=== PATIENT | male | born 1980 ===

== ENCOUNTER 2017-03-23 13:30 | Observation (INO) | payer BC ==
[2017-03-23 13:32] VITALS: BMI 30.7
--- NOTE | 2017-03-23 13:57 | ED PDOC ---
HPI: General Adult Time Seen by Provider: 03/23/17 13:41 Chief Complaint (Nursing): Abdominal Pain Chief Complaint (Provider): abdominal pain History Per: Patient History/Exam Limitations: no limitations Additional Complaint(s): 36yo male comes to the ED complaining of diffuse abdominal pain since yesterday , intermittently. Reports very little diarrhea. No constipation, fever or vomit. No alcohol use. Past Medical History Reviewed: Historical Data, Nursing Documentation, Vital Signs Vital Signs: Last Vital Signs Temp 98.1 F 03/24/17 07:32 Pulse 86 03/24/17 07:32 Resp 16 03/24/17 07:32 BP 113/70 03/24/17 07:32 Pulse Ox 98 03/24/17 09:18 - Medical History PMH: No Chronic Diseases - Surgical History Surgical History: No Surg Hx - Family History Family History: States: Unknown Family Hx - Living Arrangements Living Arrangements: With Family - Social History Alcohol: None Drugs: Denies - Allergies Allergies/Adverse Reactions: Allergies Allergy/AdvReac Type Severity Reaction Status Date / Time No Known Allergies Allergy Verified 03/23/17 13:49 Review of Systems ROS Statement: Except As Marked, All Systems Reviewed And Found Negative Constitutional: Negative for: Fever Gastrointestinal: Positive for: Abdominal Pain. Negative for: Vomiting, Constipation Physical Exam - Reviewed Nursing Documentation Reviewed: Yes Vital Signs Reviewed: Yes - Physical Exam Appears: Positive for: Well, Non-toxic, No Acute Distress Head Exam: Positive for: ATRAUMATIC, NORMAL INSPECTION, NORMOCEPHALIC Skin: Positive for: Warm, Dry Eye Exam: Positive for: EOMI, PERRL Cardiovascular/Chest: Positive for: Regular Rate, Rhythm Respiratory: Positive for: Normal Breath Sounds. Negative for: Rales, Rhonchi, Wheezing Gastrointestinal/Abdominal: Positive for: Soft, Tenderness (diffuse). Negative for: Guarding, Rebound Extremity: Positive for: Normal ROM - Laboratory Results Result Diagrams: 03/24/17 07:30 03/24/17 07:30 - ECG O2 Sat by Pulse Oximetry: 98 (RA) Pulse Ox Interpretation: Normal Medical Decision Making Medical Decision Makin CT abd/pel w/, Labs, Morphine, Pepcid, IV fluids ordered. ED OBSERVATION Date of observation admission: 03/23/17 Time of observation admission: 14:13 - Observation admission statement Patient is being placed in observation because:: need for additional diagnostic imaging to rule out acute or life threatening condition - Goals of Observation Goals of observation are:: resolution of symptoms - Progress Note Progress Note: 03/23/17 16:00 vitals are stable 03/23/17 1700 signed over to Ralph Mitchell DO pending CT, urine, dispo 03/24/17 09:17 Disposition - Clinical Impression Clinical Impression: Abdominal pain - Patient ED Disposition Is Patient to be Admitted: Transfer of Care - Disposition Disposition: Transfer of Care Disposition Time: 17:00 Condition: STABLE Patient Signed Over To: Damon Mitchell III Additional Comments - Additional Comments Additional Comments: Scribe Attestation: Documented by Trino Pham acting as a scribe for Libby Beal MD. Provider Scribe Attestation: All medical record entries made by the Scribe were at my direction and personally dictated by me. I have reviewed the chart and agree that the record accurately reflects my personal performance of the history, physical exam, medical decision making, and the department course for this patient. I have also personally directed, reviewed, and agree with the discharge instructions and disposition.
[2017-03-23] MEDS ORDERED: Iohexol 240 (50 ml) PO ONE (13:58)
[2017-03-23] MEDS ORDERED: Sodium Chloride 0.9% 1,000 ML IV STA (13:59)
[2017-03-23] MEDS ORDERED: Iohexol 240 (50 ml) ONE (14:54)
[2017-03-23 15:13] LABS: BASO % 0.3 % (0.0-2.0); EOS # 0.1 K/uL (0.0-0.7); EOS % 0.7 % (0.0-4.0); HEMATOCRIT 43.9 % (35.0-51.0); LYMPH # 1.3 K/uL (1.0-4.3); LYMPH % 11.4 % (20.0-40.0); MEAN CELL VOLUME 88.6 fl (80.0-94.0); MEAN CORPUSCULAR HEMOGLOBIN 29.1 pg (27.0-31.0); MEAN CORPUSCULAR HGB CONC 32.8 g/dL (33.0-37.0); MEAN PLATELET VOLUME 9.9 fl (7.2-11.7); MONO # 0.5 K/uL (0.0-0.8); MONO % 4.5 % (0.0-10.0); NEUT # 9.8 K/uL (1.8-7.0); NEUT % 83.1 % (50.0-75.0); RED CELL DISTRIBUTION WIDTH 13.1 % (11.5-14.5); WHITE BLOOD COUNT 11.8 K/uL (4.8-10.8)
[2017-03-23 15:34] LABS: ALB/GLOB RATIO 1.4 (1.0-2.1); ALKALINE PHOSPHATASE 90 U/L (38-126); ALT/SGPT 41 U/L (21-72); AST/SGOT 26 U/L (17-59); BILIRUBIN,TOTAL 0.7 mg/dl (0.2-1.3); BLOOD UREA NITROGEN 12 mg/dl (9-20); CALCIUM 9.3 mg/dL (8.4-10.2); CARBON DIOXIDE 25 mmol/L (22-30); CHLORIDE 101 mmol/L (98-107); GFR AFRICAN-AMERICAN > 60; GLUCOSE,RANDOM 90 mg/dL (75-110); LIPASE 37 U/L (23-300); POTASSIUM 3.8 MMOL/L (3.6-5.0); SODIUM 138 mmol/l (132-148); TOTAL PROTEIN 8.1 G/DL (6.3-8.2)
--- NOTE | 2017-03-23 17:16 | ED PDOC ---
- Laboratory Results Result Diagrams: 03/23/17 14:55 03/23/17 14:55 - ECG O2 Sat by Pulse Oximetry: 98 (RA) Pulse Ox Interpretation: Normal Medical Decision Making Medical Decision Makin:00 Patient transferred over to provider from Dr. Beal. Pending CT Abd Pelvis. Scribe Attestation: Documented by Trino Grande, acting as a scribe for Damon Mitchell III, MD. Provider Scribe Attestation: All medical record entries made by the Scribe were at my direction and personally dictated by me. I have reviewed the chart and agree that the record accurately reflects my personal performance of the history, physical exam, medical decision making, and the department course for this patient. I have also personally directed, reviewed, and agree with the discharge instructions and disposition.
[2017-03-23] MEDS ORDERED: Iohexol 300 100 ML IJ ONE (17:36)
[2017-03-23] MEDS ORDERED: Sodium Chloride 0.9% 50 ML IV ONE (17:36)
--- NOTE | 2017-03-23 18:51 | CT ---
PROCEDURE: CT Abdomen and Pelvis with contrast HISTORY: abdominal pain COMPARISON: None. TECHNIQUE: Contrast dose: 95 cc Omnipaque 300 Radiation dose: Total exam DLP = 1048.34 mGy-cm. This CT exam was performed using one or more of the following dose reduction techniques: Automated exposure control, adjustment of the mA and/or kV according to patient size, and/or use of iterative reconstruction technique. FINDINGS: LOWER THORAX: Lower lobe infiltrates/dependent atelectasis. LIVER: Unremarkable. No gross lesion or ductal dilatation. GALLBLADDER AND BILE DUCTS: Unremarkable. PANCREAS: Unremarkable. No gross lesion or ductal dilatation. SPLEEN: Unremarkable. ADRENALS: Unremarkable. No mass. KIDNEYS AND URETERS: Unremarkable. No hydronephrosis. No solid mass. VASCULATURE: Unremarkable. No aortic aneurysm. BOWEL: Unremarkable. No obstruction. No gross mural thickening. APPENDIX: Acute appendicitis. Edematous thickened wall of the appendix and periappendiceal inflammatory change. No evidence of loculated air, free air, drainable collection. PERITONEUM: Unremarkable. No free fluid. No free air. LYMPH NODES: Unremarkable. No enlarged lymph nodes. BLADDER: Unremarkable. REPRODUCTIVE: Unremarkable. BONES: No acute fracture. OTHER FINDINGS: None. IMPRESSION: Acute/uncomplicated appendicitis. Lower lobe infiltrates/atelectasis. Communication of results: Study completed at 18:22. I discussed the findings directly with Dr. Mitchell at 18:48.
[2017-03-23] MEDS ORDERED: Piperacillin/Tazobact 4.5 GM in Sodium Chloride 0.9% 100 ML IVPB STA (18:58)
--- NOTE | 2017-03-23 20:40 | CP.PCM.CON ---
History of Present Illness - History of Present Illness History of Present Illness: 36 y.o. male comes to the hospital c/o lower abdominal pain since yesterday. Denies any nausea or vomiting, reports some chills but did not measure his temperature. No change in bowel habits. States that never had this type of pain before. No urinary symptoms, no other complains at present time. Review of Systems - Constitutional Constitutional: As Per HPI - EENT Eyes: Other (unremarkable) Ears: Other (unremarkable) Nose/Mouth/Throat: Other (unremarkable) - Cardiovascular Cardiovascular: Other (unremarkable) - Gastrointestinal Gastrointestinal: As Per HPI - Genitourinary Genitourinary: As Per HPI - Reproductive: Male Reproductive:Male: Other (unremarkable) - Musculoskeletal Musculoskeletal: Other (unremarkable) - Integumentary Integumentary: Other (unremarkable) - Neurological Neurological: Other (unremarkable) - Psychiatric Psychiatric: Other (unremarkable) - Endocrine Endocrine: Other (unremarkable) - Hematologic/Lymphatic Hematologic: Other (unremarkable) Past Patient History - Past Medical History & Family History Past Medical History?: Yes - Past Social History Smoking Status: Unknown If Ever Smoked - CARDIAC Hx Cardiac Disorders: Yes (high cholesterol) - PULMONARY Hx Respiratory Disorders: No - NEUROLOGICAL Hx Neurological Disorder: No - HEENT Hx HEENT Problems: No - RENAL Hx Chronic Kidney Disease: No - ENDOCRINE/METABOLIC Hx Endocrine Disorders: No - HEMATOLOGICAL/ONCOLOGICAL Hx Blood Disorders: No - INTEGUMENTARY Hx Dermatological Problems: No - MUSCULOSKELETAL/RHEUMATOLOGICAL Hx Musculoskeletal Disorders: No - GASTROINTESTINAL Hx Gastrointestinal Disorders: No - GENITOURINARY/GYNECOLOGICAL Hx Genitourinary Disorders: No - PSYCHIATRIC Hx Psychophysiologic Disorder: No - SURGICAL HISTORY Hx Surgeries: No - ANESTHESIA Hx Anesthesia: No Meds Allergies/Adverse Reactions: Allergies Allergy/AdvReac Type Severity Reaction Status Date / Time No Known Allergies Allergy Verified 03/23/17 13:49 Physical Exam - Constitutional Appears: Well, Non-toxic, No Acute Distress - Head Exam Head Exam: ATRAUMATIC, NORMAL INSPECTION, NORMOCEPHALIC - Eye Exam Eye Exam: EOMI, Normal appearance, PERRL Pupil Exam: NORMAL ACCOMODATION, PERRL - ENT Exam ENT Exam: Mucous Membranes Moist, Normal Exam - Neck Exam Neck exam: Positive for: Full Rom, Normal Inspection - Respiratory Exam Respiratory Exam: Clear to Auscultation Bilateral, NORMAL BREATHING PATTERN - Cardiovascular Exam Cardiovascular Exam: REGULAR RHYTHM, +S1, +S2 - GI/Abdominal Exam GI & Abdominal Exam: Normal Bowel Sounds, Soft Additional comments: RLQ tenderness, ND, no rebound, no guarding - Rectal Exam Rectal Exam: Deferred - Extremities Exam Extremities exam: Positive for: full ROM, normal inspection - Back Exam Back exam: NORMAL INSPECTION - Neurological Exam Neurological exam: Alert, CN II-XII Intact, Normal Gait, Oriented x3 - Psychiatric Exam Psychiatric exam: Normal Affect, Normal Mood - Skin Skin Exam: Dry, Intact, Normal Color, Warm Results - Vital Signs Recent Vital Signs: Last Vital Signs Temp 98.1 F 03/23/17 20:06 Pulse 94 H 03/23/17 20:06 Resp 16 03/23/17 20:06 BP 122/81 03/23/17 20:06 Pulse Ox 99 03/23/17 19:17 - Labs Result Diagrams: 03/23/17 14:55 03/23/17 14:55 Labs: Laboratory Results - last 24 hr 03/23/17 03/23/17 14:55 14:55 WBC 11.8 H RBC 4.96 Hgb 14.4 Hct 43.9 MCV 88.6 MCH 29.1 MCHC 32.8 L RDW 13.1 Plt Count 154 MPV 9.9 Neut % (Auto) 83.1 H Lymph % (Auto) 11.4 L [place] % (Auto) 4.5 Eos % (Auto) 0.7 Baso % (Auto) 0.3 Neut # 9.8 H Lymph # 1.3 [place] # 0.5 Eos # 0.1 Baso # 0.0 Sodium 138 Potassium 3.8 Chloride 101 Carbon Dioxide 25 Anion Gap 16 BUN 12 Creatinine 0.6 L Est GFR ( Amer) > 60 Est GFR (Non-Af Amer) > 60 Random Glucose 90 Calcium 9.3 Total Bilirubin 0.7 AST 26 ALT 41 Alkaline Phosphatase 90 Total Protein 8.1 Albumin 4.7 Globulin 3.4 Albumin/Globulin Ratio 1.4 Lipase 37 - Imaging and Cardiology CT scan - abdomen Status: Image reviewed by me, Report reviewed by me Assessment & Plan - Assessment and Plan (Free Text) Assessment: 36 y.o. male with acute appendicitis Plan: - Keep NPO - IV fluids - Pain control - Zosyn - To OR for Appendectomy
[2017-03-23] MEDS ORDERED: Lactated Ringer's 1,000 ML IV ONE (20:53)
[2017-03-23] MEDS ORDERED: Bupivacaine 0.5% 50 ML IJ ONE ×3 (20:55→21:20)
[2017-03-23] MEDS ORDERED: HYDROmorphone 0.5 mg/0.5 ml ISec ONE (21:24)
[2017-03-23] MEDS ORDERED: HYDROmorphone 0.5 mg/0.5 ml ISec IVP PRN (21:31)
--- NOTE | 2017-03-23 21:37 | PCM.SURG1 ---
Surgeon's Initial Post Op Note - Surgeon's Notes Surgeon: Dr. Cortez Social Sciences Chair: Dr. Guerrero Type of Anesthesia: General Endo Anesthesia Administered By: Say Pre-Operative Diagnosis: Acute Appendicitis Operative Findings: same Post-Operative Diagnosis: same Operation Performed: Laparoscopic Appendectomy Specimen/Specimens Removed: appendix Estimated Blood Loss: EBL {In ML}: 10 Blood Products Given: N/A Drains Used: No Drains Post-Op Condition: Good Date of Surgery/Procedure: 03/23/17 Time of Surgery/Procedure: 21:37
[2017-03-23] MEDS ORDERED: Oxycodone/Acetaminophen 5/325 mg Tab PO PRN (21:38)
--- NOTE | 2017-03-23 21:49 | OP ---
PROCEDURE DATE: 03/23/2017 PREOPERATIVE DIAGNOSIS: Acute appendicitis. POSTOPERATIVE DIAGNOSIS: Acute appendicitis. PROCEDURE: Laparoscopic appendectomy. SURGEON: Christiano Cortez MD MACHINE BRUSHER: Cesar. ANESTHESIA: General with endotracheal intubation. ANESTHESIOLOGIST: Dr. Deal. INTRAVENOUS FLUIDS: Crystalloids. ESTIMATED BLOOD LOSS: 5 mL. INTRAOPERATIVE FINDINGS: Acute appendicitis. SPECIMEN: Appendix. BRIEF HISTORY: The patient is a very pleasant 36-year-old gentleman who presented to the hospital co mplaining of lower abdominal pain for the duration of the past 24 hours. Upon further investigation, the patient was found to have elevated white blood cell count as well as CAT scan finding significan t for acute appendicitis. All the risks and benefits of the procedure were explained to the patient and with the patient having a full understanding of all the risks and benefits involved, informed con sent was obtained and the patient was taken to the operating room for above stated procedure. PROCEDURE: The patient was brought into the operating room and placed supine on the operating room t able. Bilateral Flowtron boots were applied to patient's lower extremities. After successful induct ion of anesthesia and successful endotracheal intubation by the anesthesia team, the patient's abdome n was shaved and prepped with ChloraPrep stick and prior to that, a Flores catheter was inserted into the patient's urinary bladder. Once the patient was prepped, he was draped in the standard surgical fashion and prior to the beginning of the procedure, timeout was called in the room and everyone in t he room was in agreement. Using Veress needle, patient's abdomen was entered at the umbilicus and pn eumoperitoneum was achieved with good opening pressures. Once this was accomplished, using an 11 anna marie de scalpel knife, approximately 5 mm incision was made in the umbilicus in a longitudinal fashion and subsequent to that a 5 mm trocar was introduced into the patient's abdomen. At that point in time, 5 mm 0-degree scope was introduced into the patient's abdomen and abdomen was inspected. We immediat allegra were able to visualize the appendix in the right lower quadrant that appeared to be inflamed. At tention was turned to the lower mid abdomen. Using an 11 blade scalpel knife, a 5 mm incision was ma de in the transverse fashion and subsequent to that, another 5 mm trocar was introduced into the shari ent's abdomen. At that point in time, attention was turned to the left lower quadrant of the patient 's abdomen. Using an 11 blade scalpel knife, a 1 cm incision was made in transverse fashion and subs equent to that, 12 mm trocar was introduced into the patient's abdomen. At that point in time append ix was grasped with atraumatic grasper and subsequent to that, using [place] dissector, the window w as created between the appendix and the mesoappendix. Appendix was taken right at the base with a 45 mm blue load on the Endo-EDWARDO stapler and subsequent to that, mesoappendix was taken with a 45 mm gra y load on an Endo-EDWARDO stapler. Once the appendix was fully freed up, Endocatch bag was introduced in to the patient's abdomen and appendix was placed inside of the bag and the bag was closed. At that p oint in time, staple line was inspected for hemostasis. Hemostasis appeared to be satisfactory. At that point in time, a 12 mm trocar together with EndoCatch bag and the appendix were removed from the patient's abdomen and passed off to the [facility] as a specimen. At that point in time, fascial la waylon at the 12 mm trocar site was closed with one interrupted 0 Vicryl suture on UR-6 needle and subse quent to that, the patient's abdomen was fully desufflated. The rest of the trocars were removed fro m the patient's abdomen and skin was closed with 4-0 Monocryl suture in a running subcuticular fashio n. At the end of the procedure, incision sites were infiltrated with Marcaine anesthetic. The patie nt's abdomen was washed and dried and Dermabond was applied to the incision sites. The patient was s uccessfully extubated by the anesthesia team, Flores catheter was removed and the patient was transfer red to the stretcher and taken to the recovery room in a stable condition. At the end of the procedu re, all instrument counts, needles and sponges were correct. Christiano Cortez MD cc: [id number] TT: 03/23/2017 21:48:11 tray
[2017-03-23] MEDS ORDERED: Sodium Chloride 0.9% 1,000 ML IV SCH (22:00)
[2017-03-23] MEDS ORDERED: Piperacillin/Tazobact 3.375 GM in Sodium Chloride 0.9% 100 ML IVPB SCH (22:00)
[2017-03-24] MEDS: Piperacillin/Tazobact 3.375 GM in Sodium Chloride 0.9% 100 ML IVPB SCH ×3 (02:33→13:00)
[2017-03-24 07:33] VITALS: BP 113/70; PULSE 86; RESP 16; TEMP 98.1
[2017-03-24 07:51] LABS: HEMATOCRIT 40.8 % (35.0-51.0); MEAN CELL VOLUME 88.2 fl (80.0-94.0); MEAN CORPUSCULAR HEMOGLOBIN 29.2 pg (27.0-31.0); MEAN CORPUSCULAR HGB CONC 33.2 g/dL (33.0-37.0); RED CELL DISTRIBUTION WIDTH 13.2 % (11.5-14.5); WHITE BLOOD COUNT 7.3 K/uL (4.8-10.8)
[2017-03-24 08:14] LABS: ALB/GLOB RATIO 1.3 (1.0-2.1); ALKALINE PHOSPHATASE 70 U/L (38-126); ALT/SGPT 34 U/L (21-72); AST/SGOT 25 U/L (17-59); BLOOD UREA NITROGEN 9 mg/dl (9-20); CALCIUM 8.8 mg/dL (8.4-10.2); CARBON DIOXIDE 26 mmol/L (22-30); CHLORIDE 102 mmol/L (98-107); CHOLESTEROL 223 mg/dL (0-199); GFR AFRICAN-AMERICAN > 60; GLUCOSE,RANDOM 101 mg/dL (75-110); POTASSIUM 3.6 MMOL/L (3.6-5.0); SODIUM 138 mmol/l (132-148); TOTAL PROTEIN 6.9 G/DL (6.3-8.2)
[2017-03-24 09:18] VITALS: O2SAT 98
[2017-03-24 09:26] LABS: T4 6.74 ug/dl (5.5-11.0)
[2017-03-24 09:39] LABS: THYROID STIMULATING HORMONE 0.58 mIU/ML (0.46-4.68)
--- NOTE | 2017-03-24 10:23 | CP.PCM.PN ---
Subjective - Date & Time of Evaluation Date of Evaluation: 03/24/17 Time of Evaluation: 10:19 - Subjective Subjective: This is a general surgery progress note for Dr. Cortez: 36 y/o male seen and examined at bedside with attending Dr. Cortez. Patient appears in NAD and AAOx3. Patient denies any acute events overnight. He denies n /f/c/v/d/sob. Patient states that he is able to pass gas but has not had a bm yet. Objective - Vital Signs/Intake and Output Vital Signs (last 24 hours): Temp Pulse Resp BP Pulse Ox 98.1 F 86 16 113/70 98 03/24/17 07:32 03/24/17 07:32 03/24/17 07:32 03/24/17 07:32 03/24/17 09:20 Intake and Output: 03/24/17 03/24/17 06:59 18:59 Intake Total 900 Balance 900 - Medications Medications: Current Medications Hydromorphone HCl (Dilaudid) 0.5 mg IVP Q15M PRN PRN Reason: Pain, moderate (4-7) Stop: 03/24/17 21:32 Last Admin: 03/23/17 21:27 Dose: 0.5 mg Piperacillin Sod/Tazobactam (Sod 3.375 gm/ Sodium Chloride) 100 mls @ 100 mls/ hr IVPB 0200,0800,1400,2000 RULA Last Admin: 03/24/17 07:25 Dose: 100 mls/hr Morphine Sulfate (Morphine) 4 mg IVP Q4 PRN PRN Reason: Pain, severe (8-10) Ondansetron HCl (Zofran Inj) 4 mg IVP Q4 PRN PRN Reason: Nausea/Vomiting Oxycodone/Acetaminophen (Percocet 5/325 Mg Tab) 1 tab PO Q4 PRN PRN Reason: Pain, moderate (4-7) Stop: 03/26/17 21:39 - Labs Labs: 03/24/17 07:30 03/24/17 07:30 - Constitutional Appears: Well, Non-toxic, No Acute Distress - GI/Abdominal Exam GI & Abdominal Exam: Soft, Tenderness Assessment and Plan - Assessment and Plan (Free Text) Assessment: 36 y/o male 1 day s/p lap appy passing gas regular diet in AM stable from surgery standpoint for d/c patient to follow up with Dr. Cortez in 10-14 days as outpatient no heavy lifting over 20lbs for 4 weeks cont. abx and pain control d/w Dr. Cortez
--- NOTE | 2017-03-24 20:28 | CP.PCM.HP ---
History of Present Illness - History of Present Illness History of Present Illness: CC: Acute AP - S/P Lap Traci POD # 1. 36 y/o M, came to ER on 03/23/17 c/o of Abdominal pain lower quadrants since day [employer]. Prominent abdominal pain in the RLQ, colic type, intermittent, of moderate to severe intensity intensity 6-8:10, with no relief, associated to slight diarrhea. Worsening symptom: Found with Acute AP after CT Abd/Pelvis were done while at ER. there after Pt was admitted and underwent OR for Lap Traci on DOA. Aggravated factor: Movements/ exercise. Pt denied: Fever, chills, Hamatesis, Melena, urinary symptoms, n/v, CP, SOB, sick contact, recent travel. PMHx: High Cholesterol. Present on Admission - Present on Admission Any Indicators Present on Admission: No Review of Systems - Constitutional Constitutional: Other (negative) - EENT Eyes: Other (negative) Ears: Other (negative) Nose/Mouth/Throat: Other (negative) - Cardiovascular Cardiovascular: Other (negative) - Respiratory Respiratory: Other (negative) - Gastrointestinal Gastrointestinal: Abdominal Pain (RLQ), Diarrhea - Genitourinary Genitourinary: Other (negative) - Musculoskeletal Musculoskeletal: Other (negative) - Integumentary Integumentary: Other (negative) - Neurological Neurological: Other (negative) - Psychiatric Psychiatric: Other (negative) - Endocrine Endocrine: Other (negative) - Hematologic/Lymphatic Hematologic: Other (negative) Past Patient History - Past Medical History & Family History Past Medical History?: Yes - Past Social History Alcohol: None Drugs: Denies Home Situation {Lives}: With Family - CARDIAC Hx Cardiac Disorders: Yes (high cholesterol) - PULMONARY Hx Respiratory Disorders: No - NEUROLOGICAL Hx Neurological Disorder: No - HEENT Hx HEENT Problems: No - RENAL Hx Chronic Kidney Disease: No - ENDOCRINE/METABOLIC Hx Endocrine Disorders: No - HEMATOLOGICAL/ONCOLOGICAL Hx Blood Disorders: No - INTEGUMENTARY Hx Dermatological Problems: No - MUSCULOSKELETAL/RHEUMATOLOGICAL Hx Musculoskeletal Disorders: No - GASTROINTESTINAL Hx Gastrointestinal Disorders: No - GENITOURINARY/GYNECOLOGICAL Hx Genitourinary Disorders: No - PSYCHIATRIC Hx Psychophysiologic Disorder: No - SURGICAL HISTORY Hx Surgeries: No - ANESTHESIA Hx Anesthesia: No Meds Home Medications: Home Medication List Medication Instructions Recorded Confirmed Type Amoxicillin/Clavulanate [Augmentin 1 tab PO BID #10 tab 03/24/17 Rx 875 MG-125 MG] oxyCODONE/Acetaminophen [Percocet 1 tab PO Q8 #8 tab 03/24/17 Rx 5/325 mg Tab] Allergies/Adverse Reactions: Allergies Allergy/AdvReac Type Severity Reaction Status Date / Time No Known Allergies Allergy Verified 03/23/17 13:49 Physical Exam - Constitutional Appears: No Acute Distress - Head Exam Head Exam: NORMAL INSPECTION - Eye Exam Eye Exam: PERRL - ENT Exam ENT Exam: Normal Oropharynx - Neck Exam Neck exam: Positive for: Normal Inspection - Respiratory Exam Respiratory Exam: NORMAL BREATHING PATTERN - Cardiovascular Exam Cardiovascular Exam: REGULAR RHYTHM - GI/Abdominal Exam GI & Abdominal Exam: Normal Bowel Sounds, Soft, Tenderness ( small surgical incisio for Lap AP with minimal tenderness.). absent: Guarding, Rebound - Extremities Exam Extremities exam: Positive for: normal inspection - Back Exam Back exam: NORMAL INSPECTION - Neurological Exam Neurological exam: Alert, Oriented x3 Additional comments: No motor sensory deficit - Psychiatric Exam Psychiatric exam: Normal Affect, Normal Mood - Skin Skin Exam: Normal Color, Warm Results - Vital Signs Recent Vital Signs: Last Vital Signs Temp 98.1 F 03/24/17 07:32 Pulse 86 03/24/17 07:32 Resp 16 03/24/17 07:32 BP 113/70 03/24/17 07:32 Pulse Ox 98 03/24/17 09:20 reviewed J.P. - Labs Result Diagrams: 03/24/17 07:30 03/24/17 07:30 Labs: Laboratory Results - last 24 hr 03/24/17 03/24/17 07:30 07:30 WBC 7.3 RBC 4.63 Hgb 13.5 Hct 40.8 MCV 88.2 MCH 29.2 MCHC 33.2 RDW 13.2 Plt Count 146 Sodium 138 Potassium 3.6 Chloride 102 Carbon Dioxide 26 Anion Gap 13 BUN 9 Creatinine 0.7 L Est GFR ( Amer) > 60 Est GFR (Non-Af Amer) > 60 Random Glucose 101 Calcium 8.8 Total Bilirubin 1.0 AST 25 ALT 34 Alkaline Phosphatase 70 Total Protein 6.9 Albumin 3.9 Globulin 3.0 Albumin/Globulin Ratio 1.3 Triglycerides 62 Cholesterol 223 H LDL Cholesterol Direct 130 H HDL Cholesterol 67 Thyroxine (T4) 6.74 TSH 3rd Generation 0.58 reviewed J/P. - Imaging and Cardiology CT scan - pelvis Status: Report reviewed by me (Luis Angel) CT scan - abdomen Status: Report reviewed by me (Luis Angel) Assessment & Plan (1) Acute appendicitis Status: Acute Priority: High - Assessment and Plan (Free Text) Plan: Pt with no c/o, no A/.D, cleared by Surgeon, improved and stable to be discharged, see instruction medication, f/u with PMD in a week. - Date & Time Date: 03/24/17 Time: 13:00
== END 2017-03-24 14:43 | disposition home or self-care (01) ==
LOC: H.ER 13:30 → H.EROBSV 14:13 → H.ERHOLD 18:58 → H.MEDSURG1 22:50
PROVIDERS: ADMIT Internal Medicine Pulmonary Disease; ATTEND Internal Medicine Pulmonary Disease
DX: K35.80 Unspecified acute appendicitis (principal); E78.00 Pure hypercholesterolemia, unspecified
CPT/HCPCS: 36415; 44970; 74177; 80053; 80061; 83690; 84436; 84443; 85025; 85027; 88304; 96365; 96375; 99284; G0378; J1170; J2270; J2543; J7040; J7120; Q9966; Q9967